=== PATIENT | female | born 1955 | race African-American/Black ===

== ENCOUNTER 2019-02-24 08:35 | Emergency (ER) | payer SELFPAY ==
[~2019-02-24] VITALS: Ht 157.5 cm; Wt 99.0 kg
[2019-02-24] MEDS ORDERED: HYDROCODONE/ACETAMINOPHEN 5/325MG TABLET PO ONE (10:45)
[2019-02-24 11:11] VITALS: BP 167/58
== END 2019-02-24 11:13 | disposition home or self-care (01) ==
LOC: ER 08:35
DX: M25.512 Pain in left shoulder (principal); M25.511 Pain in right shoulder; E11.9 Type 2 diabetes mellitus without complications; I10 Essential (primary) hypertension; Z87.891 Personal history of nicotine dependence
CPT/HCPCS: 99283

== ENCOUNTER 2020-09-19 16:50 | Emergency (ER) | payer SELFPAY ==
[~2020-09-19] VITALS: Ht 157.5 cm; Wt 118.0 kg
[2020-09-19 16:53] VITALS: BP 119/93
== END 2020-09-19 18:50 | disposition left against medical advice (07) ==
LOC: ER 16:52
DX: Z53.21 Procedure and treatment not carried out due to patient leaving prior to being seen by health care provider (principal); R06.02 Shortness of breath
CPT/HCPCS: 93005

== ENCOUNTER 2022-01-19 13:56 | Inpatient (IN) | payer MEDICAID ==
[~2022-01-19] VITALS: Ht 157.5 cm; Wt 93.0 kg
[2022-01-19] VITALS (22 sets, daily range): BP systolic 133–180; BP diastolic 66–110
[2022-01-19] MEDS ORDERED: ALBUTEROL (0.083%) 2.5MG/3ML NEB HHN STA (14:09)
[2022-01-19] MEDS ORDERED: IPRATROPIUM BROMIDE (0.02%) 0.5MG/2.5ML NEB HHN STA (14:09)
[2022-01-19] MEDS ORDERED: FUROSEMIDE 40MG/4ML VIAL IVP ONE (14:15)
[2022-01-19] MEDS ORDERED: SODIUM CHLORIDE 0.9% 1000ML BAG (SEPSIS BOLUS) IV ONE (14:15)
[2022-01-19 14:43] LABS: BASOPHILS % 1.1 % (0.0-2.0); EOSINOPHILS % 1.5 % (0.0-5.0); HEMATOCRIT. 36.6 % (36.0-48.0); HEMOGLOBIN. 12.2 g/dL (12.0-16.0); LYMPHOCYTES % 28.8 % (20.0-50.0); MEAN CORPUSCULAR HEMOGLOBIN 28.5 pg (28.0-32.0); MEAN CORPUSCULAR VOLUME 85.6 fL (81.0-99.0); MEAN PLATELET VOLUME 8.3 fl (7.4-10.4); NEUTROPHILS % 57.6 % (40.0-76.0); PLATELET 385 x1000/uL (130-400); RED BLOOD CELL COUNT 4.27 mill/uL (4.2-5.4); RED CELL DISTRIBUTION WIDTH 15.1 % (11.6-14.6)
[2022-01-19 14:52] LABS: CHLORIDE 108 mEq/L (98-107); INR 1.1; PROTHROMBIN TIME 11.8 sec (9.6-11.0)
[2022-01-19] MEDS ORDERED: NITROGLYCERIN 50MG PREMIX 250 ML IV ONE (15:30)
[2022-01-19] MEDS ORDERED: NITROGLYCERIN 50MG PREMIX 250 ML IV NR (15:43)
[2022-01-19] MEDS ORDERED: DOCUSATE SODIUM 100MG CAPSULE PO PRN (16:15)
[2022-01-19] MEDS ORDERED: CLONIDINE 0.1MG TABLET PO PRN (16:15)
[2022-01-19] MEDS ORDERED: LORAZEPAM 0.5MG TABLET PO PRN (16:15)
[2022-01-19] MEDS ORDERED: ONDANSETRON HCL 4MG/2ML INJ IV PRN (16:15)
[2022-01-19] MEDS ORDERED: ENOXAPARIN 40MG/0.4ML SYR SUBCUT SCH (16:15)
[2022-01-19] MEDS ORDERED: HYDROCODONE/ACETAMINOPHEN 5/325MG TABLET PO PRN (16:15)
[2022-01-19] MEDS ORDERED: IPRATROPIUM/ALBUTEROL 0.5-3(2.5)MG/3ML NEB HHN PRN (16:15)
[2022-01-19] MEDS ORDERED: ACETAMINOPHEN 325MG TABLET PO PRN ×2 (16:15)
[2022-01-19 16:19] LABS: CLARITY URINE CLEAR (CLEAR); COLOR URINE YELLOW (YELLOW); KETONES URINE NEGATIVE (NEGATIVE); LEUKOCYTE ESTERASE URINE NEGATIVE (NEGATIVE); NITRITE URINE NEGATIVE (NEGATIVE); OCCULT BLOOD URINE NEGATIVE (NEGATIVE); PH URINE 6.5 (4.5-8.0); PROTEIN URINE 3+ (NEGATIVE); SPECIFIC GRAVITY URINE 1.006 (1.005-1.030); UROBILINOGEN URINE 0.2 E.U./dL (0.2-1.0)
[2022-01-19] MEDS ORDERED: NALOXONE HCL 0.4MG/ML VIAL IV PRN (16:30)
[2022-01-19] MEDS: ENOXAPARIN 30MG/0.3ML SYR SUBCUT SCH (17:22)
[2022-01-19] MEDS ORDERED: POTASSIUM CHLORIDE 20MEQ TABLET SR PO NR (19:00)
[2022-01-19] MEDS ORDERED: DEXTROSE 50% WATER 50ML SYRINGE IV PRN (19:00)
[2022-01-19] MEDS: BLOOD SUGAR DIAGNOSTIC STRIP TEST SCH (21:19)
[2022-01-19] MEDS: INSULIN LISPRO 100 UNITS/ML SUBCUT SCH (21:26)
[2022-01-19] MEDS: IPRATROPIUM/ALBUTEROL 0.5-3(2.5)MG/3ML NEB HHN SCH (21:27)
[2022-01-20] VITALS (30 sets, daily range): BP systolic 138–173; BP diastolic 63–108
[2022-01-20] MEDS: IPRATROPIUM/ALBUTEROL 0.5-3(2.5)MG/3ML NEB HHN SCH ×4 (01:13→20:16)
[2022-01-20] MEDS: ENOXAPARIN 30MG/0.3ML SYR SUBCUT SCH ×2 (06:19→17:27)
[2022-01-20] MEDS: BLOOD SUGAR DIAGNOSTIC STRIP TEST SCH ×4 (07:03→21:31)
[2022-01-20] MEDS: INSULIN LISPRO 100 UNITS/ML SUBCUT SCH ×4 (07:03→21:00)
[2022-01-20 07:56] LABS: BASOPHILS % 0.9 % (0.0-2.0); EOSINOPHILS % 2.6 % (0.0-5.0); HEMATOCRIT. 32.5 % (36.0-48.0); HEMOGLOBIN. 10.5 g/dL (12.0-16.0); LYMPHOCYTES % 26.4 % (20.0-50.0); MEAN CORPUSCULAR HEMOGLOBIN 28.1 pg (28.0-32.0); MEAN CORPUSCULAR VOLUME 86.8 fL (81.0-99.0); MEAN PLATELET VOLUME 8.2 fl (7.4-10.4); MONOCYTES % 13.6 % (2.0-8.0); NEUTROPHILS % 56.5 % (40.0-76.0); PLATELET 329 x1000/uL (130-400); RED BLOOD CELL COUNT 3.75 mill/uL (4.2-5.4)
[2022-01-20 08:19] LABS: CHLORIDE 110 mEq/L (98-107)
[2022-01-20] MEDS ORDERED: FUROSEMIDE 40MG/4ML VIAL IVP SCH ×2 (09:00→18:00)
[2022-01-20 09:05] LABS: BG BASE EXCESS -0.1 mmol/L (-2.0-2.0); BG CARBOXYHEMOGLOBIN 0.3 % (0.5-1.5); BG DEOXYHEMOGLOBIN 1.8 % (0.0-5.0); BG FRACTION INSPIRED OXYGEN 35; BG HCO3 ACT 25.2 mmol/L (22.0-26.0); BG METHEMOGLOBIN 0.3 % (0.0-1.5); BG OXYGEN SATURATION 98.2 % (92.0-98.5); BG OXYHEMOGLOBIN 97.6 % (94.0-97.0); BG PCO2 43.8 mmHg (35.0-45.0); BG PH 7.378 (7.350-7.450); BG PO2 116.3 mmHg (75.0-100.0); BG SAMPLE SITE RIGHT RADIAL; BG TOTAL HEMOGLOBIN 11.5 g/dL (12.0-18.0); BG TOTAL RESPIRATORY RATE 21 b/min; BG VENT MODE MASK - BIPAP
[2022-01-20] MEDS: SPIRONOLACTONE 25MG TABLET PO SCH (10:20)
[2022-01-20] MEDS: ASPIRIN 81MG TABLET PO SCH (10:20)
[2022-01-20] MEDS: AMLODIPINE 10MG TABLET PO SCH (10:20)
[2022-01-20 10:54] LABS: *AMPHETAMINES SCREEN URINE NEGATIVE (NEGATIVE); *BARBITURATES SCREEN URINE NEGATIVE (NEGATIVE); *BENZODIAZEPINES SCREEN URINE NEGATIVE (NEGATIVE); *COCAINE SCREEN URINE NEGATIVE (NEGATIVE); CANNABINOID URINE SCREEN NEGATIVE (NEGATIVE); METHADONE URINE SCREEN NEGATIVE (NEGATIVE); OPIATES URINE SCREEN NEGATIVE (NEGATIVE); PHENCYCLIDINE URINE SCREEN NEGATIVE (NEGATIVE)
[2022-01-20] MEDS ORDERED: PNEUMOCOCCAL 23-VAL P-SAC VAC 0.5 ML IM ONE (12:00)
[2022-01-21] VITALS (11 sets, daily range): BP systolic 121–166; BP diastolic 49–88
[2022-01-21] MEDS: IPRATROPIUM/ALBUTEROL 0.5-3(2.5)MG/3ML NEB HHN SCH ×4 (02:08→20:47)
[2022-01-21] MEDS: ENOXAPARIN 30MG/0.3ML SYR SUBCUT SCH ×2 (06:17→17:51)
[2022-01-21] MEDS: FUROSEMIDE 100MG/10ML VIAL IVP SCH ×2 (06:17→17:50)
[2022-01-21 06:25] LABS: PHOSPHORUS 3.6 mg/dL (2.5-4.9)
[2022-01-21] MEDS: INSULIN LISPRO 100 UNITS/ML SUBCUT SCH ×4 (07:55→21:00)
[2022-01-21] MEDS: BLOOD SUGAR DIAGNOSTIC STRIP TEST SCH ×4 (07:55→21:08)
[2022-01-21] MEDS: AMLODIPINE 10MG TABLET PO SCH (08:35)
[2022-01-21] MEDS: ASPIRIN 81MG TABLET PO SCH (08:35)
[2022-01-21] MEDS: SPIRONOLACTONE 25MG TABLET PO SCH (08:35)
[2022-01-22] VITALS: BP 140/73
[2022-01-22] MEDS: IPRATROPIUM/ALBUTEROL 0.5-3(2.5)MG/3ML NEB HHN SCH ×4 (01:53→20:21)
[2022-01-22 04:00] VITALS: BP 160/83
[2022-01-22] MEDS: FUROSEMIDE 100MG/10ML VIAL IVP SCH (05:51)
[2022-01-22] MEDS: ENOXAPARIN 30MG/0.3ML SYR SUBCUT SCH (05:51)
[2022-01-22 06:44] LABS: BASOPHILS % 0.7 % (0.0-2.0); EOSINOPHILS % 5.3 % (0.0-5.0); HEMATOCRIT. 38.1 % (36.0-48.0); HEMOGLOBIN. 12.5 g/dL (12.0-16.0); LYMPHOCYTES % 29.2 % (20.0-50.0); MEAN CORPUSCULAR HEMOGLOBIN 28.1 pg (28.0-32.0); MEAN CORPUSCULAR VOLUME 85.7 fL (81.0-99.0); MEAN PLATELET VOLUME 8.4 fl (7.4-10.4); MONOCYTES % 14.2 % (2.0-8.0); NEUTROPHILS % 50.6 % (40.0-76.0); PLATELET 388 x1000/uL (130-400); RED BLOOD CELL COUNT 4.44 mill/uL (4.2-5.4); RED CELL DISTRIBUTION WIDTH 15.4 % (11.6-14.6)
[2022-01-22] MEDS: BLOOD SUGAR DIAGNOSTIC STRIP TEST SCH ×4 (07:30→20:59)
[2022-01-22 07:32] LABS: CHLORIDE 104 mEq/L (98-107)
[2022-01-22 08:00] VITALS: BP 147/57
[2022-01-22] MEDS: INSULIN LISPRO 100 UNITS/ML SUBCUT SCH ×4 (08:00→20:59)
[2022-01-22] MEDS: SPIRONOLACTONE 25MG TABLET PO SCH (09:03)
[2022-01-22] MEDS: ASPIRIN 81MG TABLET PO SCH (09:04)
[2022-01-22] MEDS: AMLODIPINE 10MG TABLET PO SCH (09:04)
[2022-01-22 12:00] VITALS: BP 155/53
[2022-01-22 16:00] VITALS: BP 134/73
[2022-01-22] MEDS ORDERED: FUROSEMIDE 40MG TABLET PO SCH (17:00)
[2022-01-22] MEDS: FUROSEMIDE 40MG TABLET PO SCH (17:25)
[2022-01-22 20:00] VITALS: BP 149/72
[2022-01-22] MEDS ORDERED: ALBU18HF2 IH (22:43)
[2022-01-22] MEDS ORDERED: TIOT18CA3 INH (22:43)
[2022-01-22] MEDS ORDERED: ATOR10TA MT (22:43)
[2022-01-22] MEDS ORDERED: MONT10TA21 PO (22:43)
[2022-01-22] MEDS ORDERED: BACL-141 PO (22:43)
[2022-01-22] MEDS ORDERED: ACET-2708 MT (22:43)
[2022-01-22] MEDS ORDERED: NIFE90TA60 MT (22:43)
[2022-01-22] MEDS ORDERED: D-ME473S50 PO (22:43)
[2022-01-22] MEDS ORDERED: ASPI-1406 PO (22:43)
[2022-01-22] MEDS ORDERED: HYDR-459 PO (22:43)
[2022-01-22] MEDS ORDERED: ALBU4TAB6 INH (22:43)
[2022-01-22] MEDS ORDERED: FLUT15.844 BOTHNSTRLS (22:43)
[2022-01-22] MEDS ORDERED: HYDR25TA MT (22:43)
[2022-01-22] MEDS ORDERED: NAPR500T7 PO (22:43)
[2022-01-22] MEDS ORDERED: LORA10CA MT (22:43)
[2022-01-23] VITALS: BP 147/74
[2022-01-23] MEDS: IPRATROPIUM/ALBUTEROL 0.5-3(2.5)MG/3ML NEB HHN SCH ×3 (00:21→14:50)
[2022-01-23 04:00] VITALS: BP 144/71
[2022-01-23] MEDS: FUROSEMIDE 40MG TABLET PO SCH (05:28)
[2022-01-23 06:39] LABS: EOSINOPHILS % 6.1 % (0.0-5.0); HEMATOCRIT. 38.4 % (36.0-48.0); HEMOGLOBIN. 12.7 g/dL (12.0-16.0); LYMPHOCYTES % 29.7 % (20.0-50.0); MEAN CORPUSCULAR HEMOGLOBIN 28.5 pg (28.0-32.0); MEAN CORPUSCULAR VOLUME 86.6 fL (81.0-99.0); MEAN PLATELET VOLUME 8.5 fl (7.4-10.4); MONOCYTES % 12.5 % (2.0-8.0); NEUTROPHILS % 50.7 % (40.0-76.0); PLATELET 397 x1000/uL (130-400); RED BLOOD CELL COUNT 4.44 mill/uL (4.2-5.4); RED CELL DISTRIBUTION WIDTH 15.3 % (11.6-14.6)
[2022-01-23 07:24] LABS: CHLORIDE 103 mEq/L (98-107)
[2022-01-23] MEDS: BLOOD SUGAR DIAGNOSTIC STRIP TEST SCH ×2 (07:30→12:01)
[2022-01-23 08:00] VITALS: BP 158/70
[2022-01-23] MEDS: INSULIN LISPRO 100 UNITS/ML SUBCUT SCH ×2 (08:00→12:01)
[2022-01-23] MEDS: AMLODIPINE 10MG TABLET PO SCH (08:43)
[2022-01-23] MEDS: ASPIRIN 81MG TABLET PO SCH (08:43)
[2022-01-23] MEDS: SPIRONOLACTONE 25MG TABLET PO SCH (08:43)
[2022-01-23] MEDS ORDERED: ENOXAPARIN 40MG/0.4ML SYR SUBCUT SCH (09:00)
[2022-01-23 10:00] VITALS: BP 159/77
[2022-01-23 12:00] VITALS: BP 135/63
[2022-01-23] MEDS ORDERED: FURO40TA5 PO (12:04)
[2022-01-23] MEDS ORDERED: AMLO10TA80 PO (12:04)
[2022-01-23] MEDS ORDERED: SPIR25TA PO (12:04)
[2022-01-23 12:50] VITALS: BP 143/63
== END 2022-01-23 17:50 | disposition home or self-care (01) | DRG 190 ==
LOC: ER 13:56 → CVICU 15:58 → EDBEDREQ 16:01 → EDBEDREQTM 16:01 → EDBEDREQSVC 16:01 → ENRESERV 16:36 → 5EST 01-20 12:56
PROVIDERS: ADMIT Internal Medicine; ATTEND Internal Medicine
PROC: 5A09357 Assistance with Respiratory Ventilation, Less than 24 Consecutive Hours, Continuous Positive Airway Pressure (ICD-10-PCS; principal; 2022-01-19)
PROC: 5A09357 Assistance with Respiratory Ventilation, Less than 24 Consecutive Hours, Continuous Positive Airway Pressure (ICD-10-PCS; 2022-01-20)
DX: I21.4 Non-ST elevation (NSTEMI) myocardial infarction (principal); J96.01 Acute respiratory failure with hypoxia; I50.43 Acute on chronic combined systolic (congestive) and diastolic (congestive) heart failure; E87.2 Acidosis; I27.21 Secondary pulmonary arterial hypertension; D64.9 Anemia, unspecified; E11.9 Type 2 diabetes mellitus without complications; I11.0 Hypertensive heart disease with heart failure; E66.01 Morbid (severe) obesity due to excess calories; I45.81 Long QT syndrome; R77.8 Other specified abnormalities of plasma proteins; E87.6 Hypokalemia; I16.1 Hypertensive emergency; I44.7 Left bundle-branch block, unspecified; R80.9 Proteinuria, unspecified; J45.909 Unspecified asthma, uncomplicated; Z79.84 Long term (current) use of oral hypoglycemic drugs; Z71.3 Dietary counseling and surveillance; Z68.37 Body mass index [BMI] 37.0-37.9, adult
CPT/HCPCS: 36415; 36600; 71045; 80048; 80053; 80305; 81003; 82375; 82805; 82962; 83036; 83605; 83735; 83880; 84100; 84145; 84484; 85025; 90732; 93005; 93306; 94003; 94640; 94660; 99291; J1650; J1815; J1940; J3490; J7030